=== PATIENT | male | born 1995 | race Caucasian/White ===

== ENCOUNTER 2023-11-30 10:07 | Outpatient (AMB) | payer OTHER, SELFPAY ==
--- NOTE | 2023-11-30 10:10 | MHC.PC.OV ---
Vital Signs 11/30/23 10:11 Height 5 ft 11 in Weight 171 lb BMI 23.8 BP 124/72 Blood Pressure Location Lt brachial Position Sitting Pulse 98 Pulse Source Pulse Oximeter Pulse Oximetry (%) 100 Oxygen Delivery Method Room Air Intake Visit Reasons: NPV/requesting phy Intake Note: Patient is here as a new patient, he is on insulin pump, he needs sensors. Allergies No Known Allergies Allergy (Verified 11/30/23 10:14) Tobacco use date assessed: 11/30/23 Dental Screening Dental Screen Date: 11/30/23 Did you have a dental visit in the last 12 months?: Yes Did you have a dental problem in the last 6 months where you did not have access to dental care?: No Was dental information given to patient?: Patient has dentist HPI NPV/requesting phy HPI Details [facility] Last office visit/CPE: Few months ago, check up. More than a year for his last physical Acute issue(s): Needs?refills?for?Dexcom?G6?sensor?and?insulin?pump?refill. 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 PMHx:??Diabetes?type?1, Hypertension, Kidney stones SurgHx: ACL tear, wisdom tooth FHx: Mom: HLD, HTN, Breast CA. Dad: DM2, Renal failure, liver failure, CHF, Asthma, Anxiety, Emphysema, Neuropathy. SocHx: Nonsmoker. EtOH rarely 1 drink. No drugs. [facility]LY [facility], [facility] Medical History (Updated 11/30/23 @ 10:57 by Rishabh Floyd) High blood pressure Surgical History (Updated 11/30/23 @ 10:20 by Natalie Simmons CMA) [place] teeth extracted S/P ACL surgery Family History (Updated 11/30/23 @ 10:22 by Natalie Simmons CMA) Mother High blood pressure Breast cancer Father High blood pressure Emphysema lung Diabetes Social History (Updated 11/30/23 @ 10:25 by Natalie Simmons CMA) Household Members: Family Housing: House 75 years or older and lives alone: No Alcohol intake: never Patient Tobacco Use Status: Never used Tobacco e-Cigarette/Vaping Use: Never Used Special jhonatan needs: No service: No Current occupational status: employed Current occupation: [employer] Cognitive needs: No Hearing needs: No Vision needs: No Questionnaire PHQ-9 Over the last 2 weeks, how often have you been bothered by any of the following problems? 1. Little interest or pleasure in doing things: not at all 2. Feeling down, depressed, or hopeless: not at all 3. Trouble falling or staying asleep, or sleeping too much: not at all 4. Feeling tired or having little energy: not at all 5. Poor appetite or overeating: not at all 6. Feeling bad about yourself - or that you are a failure or have let yourself or your family down: not at all 7. Trouble concentrating on things, such as reading the newspaper or watching television: not at all 8. Moving or speaking so slowly that other people could have noticed. Or the opposite - being so fidgety or restless that you have been moving around a lot more than usual: not at all 9. Thoughts that you would be better off or of hurting yourself in some way: not at all Total score: 0 Source: Developed by Drs. Pedro Pablo Gorman, Bethany Hebert, Tay Hogan and colleagues, with an educational isacc from [employer]. Thrive Questionnaire Date Thrive assessed: 11/30/23 I am a: Patient What is your living situation today?: I have a steady place to live Within the past 12 months, did the food you bought not last and you didn't have the money to get more?: Never true Within the past 12 months, did you worry whether your food would run out before you got money to buy more?: Never true Do you have trouble paying for medicines?: No Do you have trouble getting transportation to medical appointments?: No Do you have trouble paying your heating and electricity bill?: No Do you have trouble taking care of your child, family member or friend?: No Do you have trouble with day-to-day activities such as bathing, preparing meals, shopping, managing finances, etc.?: No Are you currently unemployed and looking for a job?: No Are you interested in more education?: No AUDIT C Alcohol Use Questionnaire (AUDIT-C) 1. How often do you have a drink containing alcohol?: Never 3. How often do you have six or more drinks on one occasion?: Never Total Score: 0 SHIRLEY-7 AMB Questionnaire SHIRLEY-7 Date SHIRLEY - 7 assessed: 11/30/23 Feeling nervous, anxious, or on edge: 0 = Not at all Not being able to stop or control worryin = Not at all Worrying too much about different things: 0 = Not at all Trouble relaxin = Not at all Being so restless that it is hard to sit still: 0 = Not at all Becoming easily annoyed or irritable: 0 = Not at all Feeling afraid as if something awful might happen: 0 = Not at all Total SHIRLEY-7 score (0-4 normal; 5-9 mild; 10-14 moderate; 15-21 severe): 0 Source: Developed by Drs. Pedro Pablo Gorman, Bethany Hebert, Tay Hogan and colleagues, with an educational isacc from [employer]. Review of Systems Const Denies chills, Denies fatigue, Denies fever(s), Denies headache(s) and Denies weakness ENT Denies dizziness and Denies headache(s) Card Denies chest pain, Denies lightheadedness, Denies dyspnea and Denies other (Palpitations) Resp Denies cough, Denies dyspnea, Denies wheezing and Denies other ( shortness of breath) Musc Denies numbness and Denies tingling Neuro Denies dizziness, Denies headache(s), Denies numbness, Denies tingling, Denies paresthesias and Denies weakness Psych Denies anxiety and Denies depression Endo Denies fatigue Aller/Immun Denies wheezing Physical exam (Primary Care) Vital Signs: Last Vital Signs Pulse 98 11/30/23 10:11 BP 124/72 11/30/23 10:11 Pulse Ox 100 11/30/23 10:11 Oxygen Delivery Method Room Air 11/30/23 10:11 BMI result Body Mass Index 23.8 Tobacco/Smoking Status: Tobacco use Status Tobacco use date assessed 11/30/23 11/30/23 10:28 Patient Tobacco Use Status Never used Tobacco 11/30/23 10:28 e-Cigarette/Vaping Use Never Used 11/30/23 10:28 PHQ-9: PHQ-9 Score PHQ-9: Total score 0 01/11/24 10:50 Thrive Assessment: Date of Thrive Assessment Date Thrive assessed 11/30/23 11/30/23 10:28 Const General: no acute distress and well developed Nutritional Appearance: well nourished Orientation/consciousness: patient oriented x3 [facility] Head: Yes normocephalic and Yes atraumatic Eyes General: appearance normal, both eyes and all related structures Pupils: Equal, round and reactive pupils present EOM: EOMs intact bilaterally Resp Effort & Inspection: normal respiratory effort Auscultation: clear to auscultation bilaterally Cardio Rate: regular rate Rhythm: regular rhythm Heart sounds: S1 normal heart sound present, S2 normal heart sound present, no gallops, no murmurs and no rubs Neuro General: patient oriented x3 and gait normal Cranial nerves: Yes Equal, round and reactive pupils present Psych Affect: normal affect Assessment and Plan Assessment & Plan (1) Type 1 diabetes: Code(s): E10.9 - Type 1 diabetes mellitus without complications Plan: 27-year-old?male?with?type?1?diabetes.??He?is?out?of?his?Dexcom?Omnipod?5?medication?and?Dexcom?G6?sensors. Will?refill?these?for?him. 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 No?recent?eye?exam?though?no?diabetic?retinopathy?on?my?exam?today. Refer?to?endocrinology?and?ophthalmology. Continue?current?medication?regimen Check?labs?including?A1c (2) High blood pressure: Code(s): I10 - Essential (primary) hypertension Plan: Patient?says?he?takes?lisinopril?though?he?does?not?know?the?dose.??He?will?call?us?with?the?dose?and?I?will?send?script (3) History of kidney stones: Code(s): Z87.442 - Personal history of urinary calculi Plan: Hydrate?well (4) Laboratory exam ordered as part of routine general medical examination: Code(s): Z00.00 - Encounter for general adult medical examination without abnormal findings Plan: Check?lab Orders: Orders CT NG by PCR 11/30/23 Z11.3 - Encounter for screening for infections with a predominantly sexual mode of transmission HIV Ab/Ag 11/30/23 Z11.3 - Encounter for screening for infections with a predominantly sexual mode of transmission Lipid Panel 11/30/23 Z00.00 - Encounter for general adult medical examination without abnormal findings Microalbumin, Random (w Creat) 11/30/23 I10 - Essential (primary) hypertension TSH reflex Free T4 11/30/23 Z. - Encounter for general adult medical examination without abnormal findings UA and rflx microscopic 11/30/23 Z00.00 - Encounter for general adult medical examination without abnormal findings Comprehensive [place]. Panel Fast 11/30/23 Z. - Encounter for general adult medical examination without abnormal findings Complete Blood Count Auto Diff 11/30/23.00 - Encounter for general adult medical examination without abnormal findings Hemoglobin A1c 11/30/23 R73.01 - Impaired fasting glucose Hepatitis B,C Profile 11/30/23 Z11.3 - Encounter for screening for infections with a predominantly sexual mode of transmission Syphilis Screen 11/30/23 Z11.3 - Encounter for screening for infections with a predominantly sexual mode of transmission Referrals Endocrinology Referral E10.9 - Type 1 diabetes mellitus without complications Medications: New blood-glucose sensor (Dexcom G6 Sensor device) As directed 3 ea 0RF insulin pump cart,automated,BT (Omnipod 5 G6 Pods (Gen 5) subcutaneous cartridge) As directed 5 ea 0RF insulin pump cart,automated,BT (Omnipod 5 G6 Pods (Gen 5) subcutaneous cartridge) To treat blood sugar, As directed, 30 days 15 ea 0RF E10.9 - Type 1 diabetes mellitus without complications blood-glucose sensor (Dexcom G6 Sensor device) To monitor BS x 10 days As directed, 90 days 9 ea 3RF E10.9 - Type 1 diabetes mellitus without complications Coding Level of Care Code New Pt Level 3 (25939) Diagnoses Type 1 diabetes E10.9 High blood pressure I10 History of kidney stones Z87.442 Laboratory exam ordered as part of routine general medical examination Z.00
[2023-11-30 10:11] VITALS: BP 124/72; PULSE 98; O2SAT 100; BMI 23.8
== END 2023-11-30 11:11 | disposition home or self-care (01) ==
PROVIDERS: PCP Family Medicine; Visit Provider Family Medicine
DX: E10.9 Type 1 diabetes mellitus without complications (principal); I10 Essential (primary) hypertension; Z87.442 Personal history of urinary calculi; Z00.00 Encounter for general adult medical examination without abnormal findings
CPT/HCPCS: 99203

== ENCOUNTER 2023-12-21 09:12 | Outpatient (REF) | payer OTHER, SELFPAY ==
[2023-12-21 11:04] LABS: MANUAL DIFF FLAG NO
[2023-12-21 11:24] LABS: Basophils Absolute Auto 0.1 X10*3/uL (0.0-0.2); Basophils Percent Auto 1.1 % (0-2); Eosinophils Absolute Auto 0.3 X10*3/uL (0.0-0.4); Eosinophils Percent Auto 4.4 % (0-4); Hematocrit 44.3 % (42.0-52.0); Hemoglobin 14.7 g/dl (14.0-18.0); Imm Gran Abs Auto 0.02 X10*3/uL (0.00-0.03); Imm Gran Pct Auto 0.3 % (0.0-0.4); Lymphocytes Absolute Auto 1.8 X10*3/uL (1.2-4.9); Lymphocytes Percent Auto 29.8 % (20-40); Mean Corpuscular HGB Conc 33.2 g/dl (31.0-36.0); Mean Corpuscular Volume 84.4 fL (80.0-98.0); Mean Platelet Volume 9.9 fL (9.4-12.4); Monocytes Absolute Auto 0.5 X10*3/uL (0.1-1.2); Monocytes Percent Auto 7.7 % (2-11); Neutrophils Absolute Auto 3.5 x10*3/uL (2.0-8.3); Neutrophils Percent Auto 56.7 % (45-73); Platelet Count 377 X10*3/uL (160-400); Red Blood Count 5.25 X10*6/uL (4.60-5.80); Red Cell Distribution Width 12.7 % (11.0-16.0); White Blood Count 6.1 X10*3/uL (4.8-10.8)
[2023-12-21 11:28] LABS: Appearance Urine Clear; Color Urine Yellow; Glucose Urine UA 500 mg/dL (Negative); Leukocyte Esterase Urine Negative (Negative); Nitrite Urine Negative (Negative); Specific Gravity - Urine 1.025 (1.005-1.025); UMIC TRIGGER UA YES; Urine Blood Negative (Negative); Urine Ketones Negative (Negative); Urine Protein 100 (2+) mg/dL (Neg-Trace)
[2023-12-21 11:34] LABS: Bacteria Urine None Seen (None Seen); Hyaline Casts Urine 0-2 /LPF (0-2); RBC Urine 0-2 /HPF (0-2); Squamous Epithelial Cell Urine 0-2 /HPF (0-2); WBC Urine 0-5 /HPF (0-5)
[2023-12-21 11:46] LABS: Estimated Average Glucose 200 mg/dL; Hemoglobin A1c % 8.6 % (<6.0)
[2023-12-21 11:56] LABS: HBS Num1 48.53 mIU/mL (0-7.99); HBc Num1 0.12 S/CO (0.00-0.79); HBsAGNum1 0.35 S/CO (0.00-0.99); HIV AB/AG Nonreactive (Nonreactive); HIV Num 1 0.11 S/CO (0.00-0.99); Hepatitis B Core Antibody Nonreactive (Nonreactive); Hepatitis B Surface Antigen Negative (Negative); ~HepC Num1 0.09 S/CO (0.00-0.79); ~Hepatitis B Surface Antibody REACTIVE (Nonreactive); ~Hepatitis C Antibody Nonreactive (Nonreactive)
[2023-12-21 12:04] LABS: Syphilis Screen Nonreactive (Nonreactive)
[2023-12-21 12:17] LABS: Creatinine Urine 208.78 mg/dL
[2023-12-21 14:42] LABS: Alanine Aminotransferase 23 U/L (0-40); Albumin Level 4.2 g/dL (3.5-5.0); Alkaline Phosphatase 89 U/L (39-117); Anion Gap 12 (12-20); Aspartate Amino Transferase 20 U/L (5-37); Blood Urea Nitrogen 17 mg/dL (9-16); Calcium 9.5 mg/dL (8.4-10.2); Carbon Dioxide 32 mmol/L (22-29); Chloride 101 mmol/L (96-108); Cholesterol 214 mg/dL (<200); Estimated Glomerular Filt Rate > 60; Glucose Fasting 102 mg/dL (60-99); HDL Cholesterol 78 mg/dL (>40); LDL Cholesterol Calculated 124 mg/dL (<100); Potassium 4.3 mmol/L (3.3-5.1); Sodium 141 mmol/L (135-145); Total Protein 7.4 g/dL (6.5-8.0); Triglycerides 63 mg/dL (<150)
== END 2023-12-21 09:13 | disposition home or self-care (01) ==
LOC: HO.WFDLDS 09:12
PROVIDERS: Visit Provider Family Medicine
DX: Z00.00 Encounter for general adult medical examination without abnormal findings (principal); Z11.4 Encounter for screening for human immunodeficiency virus [HIV]; I10 Essential (primary) hypertension; R73.01 Impaired fasting glucose; Z20.2 Contact with and (suspected) exposure to infections with a predominantly sexual mode of transmission
CPT/HCPCS: 36415; 80053; 80061; 81001; 82043; 82570; 83036; 84443; 85025; 86704; 86706; 86780; 86803; 87340; 87389

== ENCOUNTER 2025-01-01 09:56 | Outpatient (AMB) | payer OTHER, SELFPAY ==
--- NOTE | 2025-01-01 10:22 | AM.OFFWIN_ITS ---
Intake Vital Signs 01/01/25 10:27 Height 5 ft 11 in Weight 175 lb BMI 24.4 BP 118/72 Blood Pressure Location Rt brachial Position Sitting Respiration 14 Pulse 115 H Pulse Source Pulse Oximeter Temp 98.8 F Temp Source Oral Pulse Oximetry (%) 98 Oxygen Delivery Method Room Air Intake Visit Reasons: vomitting/ fever/diarea Intake Note: vomiting, fever, diarrhea, nausea, headache. Sxs started yesterday. Vomiting started yesterday about 1 am. Is vomiting ever 30 minutes. Patient Tobacco Use Status: Never used Tobacco Allergies No Known Allergies Allergy (Verified 01/01/25 10:33) Medication List - Last Reconciled 01/01/25 by Radha Bundy, [employer]- blood-glucose sensor (Dexcom G6 Sensor device) To monitor BS x 10 days As direct ed, 90 days insulin lispro (Humalog U-100 Insulin) 1 sliding scale dose subcut USEASDIRECTD insulin pump cart,automated,BT (Omnipod 5 G6 Pods (Gen 5) subcutaneous cartridge) To treat blood sugar, As directed, 30 days Do you need a note to return to daycare/school/sports/work: Yes Return to daycare/school/sports/work/other note: work HPI HPI Comments History of Present Illness Details History The patient is a 29-year-old male presenting with vomiting and diarrhea. He reports the onset of these symptoms occurred yesterday morning while at work, with episodes of vomiting and diarrhea occurring approximately every 30 minutes. The patient denies any recent travel and states there is no blood present in either the vomit or stool. The episodes of vomiting and diarrhea occurred most recently just before arriving at the clinic. He has not been taking any medication to alleviate these symptoms, as previous attempts were ineffective. The patient notes a slight fever but no chills. DM!1 the patient reports a recent spike in blood glucose levels, reaching a level of 160 mg/dL, and expresses concern that it is approaching a concerning value. He monitors his blood glucose using a Continuous Glucose Monitor (CGM), which has not shown excessively high readings beyond his usual ranges. Did not get flu shot. Exposed to son w similar sx. + fever, chills normal urination Denies abd surgery. Physical Exam General: Awake, alert. No apparent distress, mildly ill accompanied by Eyes: Sclera and conjunctiva clear bilaterally Throat: dry mucosa membrane, pharynx within normal limits Cardiovascular: tachycardic, Regular rhythm Respiratory: Clear to auscultation bilaterally Abd soft hypoactive bs x 4 nontender Results - COVID-19 Swab: Results pending Discussion Notes I discussed with the patient the current outbreak of a stomach bug and emphasized the importance of fluids for recovery. I explained the difference between stomach flus and influenza and informed him about the importance of testing for influenza and why we recommend doing so. I explained that if he tested positive for influenza, Tamiflu would be prescribed, noting the possible side effect of stomach upset. I outlined the importance of hydration, highlighting various hydration methods such as consumption of popsicles, broth, and electrolyte-rich drinks. Furthermore, I discussed the potential use of Zofran for nausea and vomiting and Benadryl as additional support for nausea and to help him rest. We discussed follow-up protocols and ER precautions if his condition worsened, such as the inability to urinate, presence of blood in vomit or diarrhea, or severe abdominal pain. I advised him on sick note requirements to help manage his work commitments. Assessment and Plan A 29-year-old male with a history of hyperglycemia, presenting with vomiting and diarrhea. The symptoms began acutely yesterday morning and are characterized by frequent episodes occurring every 30 minutes, without prior travel history. Initial observations suggest acute gastroenteritis, likely viral in nature, given the lack of blood in vomit or stool and absence of significant fever. The patient's hyperglycemia, while rising, does not currently indicate a severe state as per CGM readings. Likely differential diagnoses include a viral gastroenteritis and possibly foodborne illness; less likely bacterial infection given the current findings. Influenza remains a consideration pending further test results. Acute Gastroenteritis The plan includes supportive care focusing on adequate hydration using both clear fluids and electrolytes. Prescribed ondansetron (Zofran) as needed for nausea and emphasized early administration. Recommended the possible use of diphenhydramine (Benadryl) to aid in symptomatic relief and promote sleep. Monitoring of symptoms for any escalation requiring potential ER evaluation was discussed. Hyperglycemia Patient was advised to continue close monitoring using CGM to avoid hyperglycemic exacerbations due to illness. Emphasized the importance of staying within normal glucose ranges during this period of gastrointestinal upset. Discussed potential adjustments to diet or glucose management if symptoms persist. Patient Instructions - Stay well-hydrated with fluids recomme nded such as clear liquids, broth, electrolyte drinks, and popsicles. - Use Zofran as prescribed for nausea ev danielle eight hours and consider taking Benadryl for additional symptom relief and sleep if needed. - Monitor blood glucose levels carefully using the CGM and take actions if ab normal levels are detected. - Seek immediate medical attention if sy mptoms worsen, such as inability to urinate, presence of blood in vomit or stool, or experiencing severe abdominal pain. - A work note has been provided to manag e absence due to illness. - Await contact regarding test results a nd planned medication distribution Total time spent caring for the patient today was 30 minutes. This includes time spent before the visit reviewing the chart, time spent during the visit, and time spent after the visit on documentation, reviewing laboratory results, diagnostic imaging, medications, performing a medically necessary evaluation, counseling on diagnoses, care coordination, ordering appropriate tests, ordering appropriate medications, review of tests performed by other providers, reporting test results with the patient, communication with other healthcare providers. [facility] Medical History (Updated 01/01/25 @ 10:47 by Radha Bundy, [facility]) High blood pressure Surgical History (Updated 11/30/23 @ 10:20 by Natalie Simmons CMA) S/P ACL surgery [place] teeth extracted Family History (Updated 11/30/23 @ 10:22 by Natalie Simmons CMA) Mother High blood pressure Breast cancer Father High blood pressure Emphysema lung Diabetes Social History (Updated 11/30/23 @ 10:25 by Natalie Simmons CMA) Household Members: Family Housing: House 75 years or older and lives alone: No Alcohol intake: never Patient Tobacco Use Status: Never used Tobacco e-Cigarette/Vaping Use: Never Used Special jhonatan needs: No service: No Current occupational status: employed Current occupation: [employer] Cognitive needs: No Hearing needs: No Vision needs: No Physical Exam Vital Signs: Last Vital Signs Temp 98.8 F 01/01/25 10:27 Pulse 115 H 01/01/25 10:27 Resp 14 01/01/25 10:27 BP 118/72 01/01/25 10:27 Pulse Ox 98 01/01/25 10:27 Oxygen Delivery Method Room Air 01/01/25 10:27 BMI result Body Mass Index 24.4 Assessment & Plan Assessment & Plan (1) Flu-like symptoms: Code(s): R68.89 - Other general symptoms and signs (2) Gastroenteritis: Code(s): K52.9 - Noninfective gastroenteritis and colitis, unspecified (3) Type 1 diabetes: Code(s): E10.9 - Type 1 diabetes mellitus without complications Qualifiers: Diabetes mellitus complication status: with hyperglycemia Qualified Code(s): E10.65 - Type 1 diabetes mellitus with hyperglycemia Plan . Orders: Orders SARS-CoV2/FLU/RSV Today K52.9 - Noninfective gastroenteritis and colitis, unspecified, R68.89 - Other general symptoms and signs Medications: New ondansetron HCl 8 mg PO BID-TID 15 tabs 0RF Coding Level of Care Code Est Pt Level 4 (12904) Diagnoses Flu-like symptoms R68.89 Gastroenteritis K52.9 Type 1 diabetes mellitus with hyperglycemia E10.65 Diabetes mellitus complication status: with hyperglycemia
[2025-01-01 10:27] VITALS: BP 118/72; PULSE 115; RESP 14; TEMP 37.1; O2SAT 98; BMI 24.4
--- OUTSIDE RECORDS SUMMARY | 2025-01-01 11:48 | XMS_ITS | Clinical Summary ---
Author Organization [facility] Address [address] [place] [address] Care Team Providers Care Opal Miner Name Role Phone Cedrick Bhatt MD Primary Care Provide r Surgical History Surgery Date Site/Laterality Comments KNEE SURGERY 2008 Left PROCEDURE: HISTORICAL KNEE SURGERY; COMMENT: ACL repair OTHER SURGICAL HISTORY 01/01/2013 Right PROCEDURE: HISTORY OTHER; COMMENT: Closed reduction 5th metacarpal neck fracture Medical History Medical History Date Comments Type 1 diabetes mellitus wit hout complication (CMS/HCC) DX:Type 1 diabetes mellitus without complication (HCC) Adrenal insufficiency (CMS/HCC) 06/18/2019 DX:Adrenal insufficiency (HCC) 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) 01/05/2021 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) Family History Medical History Relation Name Comments Diabetes Father type II, [place] age 58 Diabetes Maternal Grandmother Type 2 Breast cancer Mother after >45.canc er free Diabetes Paternal Grandmother Type 2 No Known Problems Sister 1 No Known Problems Sister 2 Colon cancer Neg Hx Relation Name Status Comments Father Maternal Grandfather Maternal Grandmother Alive Mother Alive Paternal Grandfather Paternal Grandmother Alive Sister 1 Alive Sister 2 Alive Social History Tobacco Use Types Packs/Day Years Used Date Smoking Tobacco: Never Smokeless Tobacco: Never Alcohol Use Standard Drinks/Week Comments Yes 0 (1 standard drink = 0.6 oz pur e alcohol) Sex and Gender Information Value Date Recorded Sex Assigned at Not on file Legal Sex Male 5:24 AM EST Gender Identity Not on file Sexual Orientation Not on file Obstetrics History Last Filed Vital Signs Vital Sign Reading Time Taken Comments Blood Pressure 132/86 05/18/2023 11:07 AM EDT Auto Cuff Pulse 83 05/18/2023 11:07 AM EDT Temperature - - Respiratory Rate - - Oxygen Saturation - - Inhaled Oxygen Concentration - - Weight 74.2 kg (163 lb 9.6 oz) 05/18/20 11:07 AM EDT Height 180.3 cm (5' 11 ) 05/18/2023 11: 07 AM EDT Body Mass Index 22.82 05/18/2023 11:07 AM EDT Plan of Treatment Health Maintenance Due Date Last Done Comments Diabetes: Annual GFR (Glomerular Filtration Rate) 1993 Hepatitis B Vaccines (3 of 3 - 3-dose series) 1994 10/27/1994, 01/31/1994, 01/17/1994 Diabetes: Annual Foot Exam 2003 Diabetes: Annual Retina Eye Exam 2003 Cholesterol Screening (Lipid Panel) 10/23/2022 Depression Screening 10/23/2022 HIV Screening 10/23/2022 Hepatitis C Screening 10/23/2022 Social Influencers of Health Screening 10/23/2022 Diabetes: Annual Urine Albumin-Creatinine Ratio (uACR) 10/27/2022 Diabetes: Blood Sugar Control Test (HGBA1C) 10/27/2022 Hypertension/CHF/CAD Annual BMP Blood Test 10/27/2022 COVID-19 Vaccine ( season) 2024 Influenza Vaccine (#1) 2024 9, 08/23/2016, 08/25/2015, Additional history exists DTaP,Tdap,and Td Vaccines (9 - Td or Tdap) 07/24/2029 07/24/2019, 09/14/2017, 09/15/2006, Additional history exists HIB Vaccines Completed 06/19/1995, 05/1994, 05/10/1994, Additional history exists IPV Vaccines Completed 09/23/1998, 05/22, 07/27/1994, Additional history exists MMR Vaccines Completed 09/23/1998, 02/21/1995 Meningococcal ACWY Vaccine Aged Out 06/09/2008 N o longer eligible based on patient's age to complete this topic Varicella Vaccines Completed 06/09/2008, 09/23/1998 Pneumococcal Vaccine: Pediatrics (0 to 5 Years) and At-Risk Patients (6 to 64 Years) Aged Out 08/08/2019, 10/16/2006 No longer eligibl e based on patient's age to complete this topic HPV Vaccines Aged Out No longer eligi ble based on patient's age to complete this topic Hepatitis A Vaccines Aged Out No long er eligible based on patient's age to complete this topic Meningococcal B Vacine Aged Out No lo nger eligible based on patient's age to complete this topic RSV Immunization Patients Under 20 months Aged Out No longer eligible based on patient's age to complete this topic Care Teams Opal Miner Relationship Specialty Start Date End Date Cedrick Bhatt MD PCP - General Internal Medicine 04/24/19
== END 2025-01-01 10:43 | disposition home or self-care (01) ==
LOC: HO.HMCWIW 10:00
PROVIDERS: PCP Family Medicine; Visit Provider Nurse Practitioner Family
DX: R68.89 Other general symptoms and signs (principal); K52.9 Noninfective gastroenteritis and colitis, unspecified; E10.65 Type 1 diabetes mellitus with hyperglycemia

== ENCOUNTER 2025-01-01 09:56 | Outpatient (REF) | payer OTHER, SELFPAY ==
--- OUTSIDE RECORDS SUMMARY | 2025-01-01 16:09 | XMS_ITS | Clinical Summary ---
Author Organization [facility] Address [address] [place] [address] Care Team Providers Care Devil Tender Name Role Phone Cedrick Bhatt MD Primary [...] Relation Name Comments Diabetes Father type II, [place] age 58 Diabetes Maternal Grandmother Type 2 [...] age to complete this topic Care Teams Devil Tender Relationship Specialty Start Date End Date Cedrick Bhatt MD PCP - General Internal Medicine 04/24/19
[2025-01-01 16:14] LABS: Influenza A PCR NEGATIVE (Negative); Influenza B PCR NEGATIVE (Negative); Resp Syncy Virus RNA Qual PCR NEGATIVE (Negative); SARS COV2 PCR INHOUSE NEGATIVE (Negative)
== END 2025-01-01 09:57 | disposition home or self-care (01) ==
LOC: HO.LNP 09:56
PROVIDERS: PCP Family Medicine; Visit Provider Nurse Practitioner Family
DX: R50.9 Fever, unspecified (principal); K52.9 Noninfective gastroenteritis and colitis, unspecified
CPT/HCPCS: 0241U